=== PATIENT | female | born 1960 | race Caucasian/White ===

== ENCOUNTER 2020-05-29 12:33 | Emergency (ER) | payer OTHER, SELFPAY ==
[2020-05-29 12:52] VITALS: BMI 34.2
[2020-05-29 12:54] VITALS: BP 161/85; PULSE 72; RESP 18; TEMP 36.9; O2SAT 96
[2020-05-29 15:05] LABS: Basophils % 0.4 %; Eosinophils % 0.1 %; Hematocrit 43.8 % (37.0-47.0); Hemoglobin 14.9 g/dL (11.5-15.3); Lymphocytes # 1.5 10^3/uL (0.8-4.8); Lymphocytes % 22.6 %; Mean Corpuscular Hemoglobin 30.2 pg (28.0-34.0); Mean Corpuscular Volume 88.7 fL (81-99); Mean Platelet Volume 9.2 fL (7.4-10.4); Monocytes # 0.7 10^3/uL (0.2-0.9); Monocytes % 11.1 %; Neutrophils # 4.4 10^3/uL (1.8-7.7); Neutrophils % 65.5 %; Nucleated Red Blood Cells % 0 %; Platelet Count 175 10^3/cmm (130-400); Red Blood Count 4.94 10^6/uL (4.1-5.3); Red Cell Distribution Width 13.4 % (12.1-15.1); White Blood Count 6.7 10^3/uL (4.0-10.0)
[2020-05-29 15:37] LABS: Alanine Aminotransferase 20 U/L (0-33); Albumin Level 4.4 g/dL (3.5-5.2); Alkaline Phosphatase 61 IU/L (35-105); Anion Gap 18.3 (5-19); Aspartate Amino Transferase 21 U/L (0-32); Blood Urea Nitrogen 12 mg/dL (8-23); Calcium 9.6 mg/dL (8.5-10.5); Carbon Dioxide 24 mmol/L (22-29); Chloride 89 mmol/L (98-107); Globulin 3.9 g/dL (1.3-4.6); Glucose 153 mg/dL (65-115); Magnesium 2.2 mg/dL (1.7-2.3); Osmolality Calculated 263 mOsm/kg (285-295); Potassium 4.3 mmol/L (3.5-5.1); Sodium 127 mmol/L (136-145); Total Bilirubin 0.5 mg/dL (0.15-1.2); Total Protein 8.3 g/dL (6.6-8.7)
--- NOTE | 2020-05-29 17:29 | ED_ITS ---
HPI - General Adult General: Chief complaint: General Medical Stated complaint: poss dehydration Time Seen by Provider: 05/29/20 17:24 History of Present Illness: HPI narrative: Patient complains about dehydration because she is got shingles and not able to eat or drink much because of pain in her mouth. Onset (ago): day(s) Location: face Quality: constant Associated symptoms: Reports rash (Shingles rash right side of face times days); Deny chest pain, dyspnea, headache(s), nausea or vomiting Review of Systems Const: Denies: fever(s), chills or body aches Eyes: Denies: change in vision or blurry vision ENMT: Denies: throat pain or nasal congestion Card: Denies: chest pain or dyspnea on exertion Resp: Denies: dyspnea, productive cough or non-productive cough GI: Denies: abdominal pain, nausea or vomiting Musc: Denies: extremity pain Skin/Breast: Reports: rash (Shingles rash right side of face times days) Neuro: Denies: headache(s) Psych: Denies: anxiety or depression Trever/Lymph: Denies: easy bruising PFSH ED PFSH: Social History Smoking and tobacco status: never smoked Alcohol intake: never Physical Exam Const: COMMON NORMALS: no acute distress, average body habitus and patient oriented x3 HENMT: COMMON NORMALS: normocephalic HEAD & SCALP: normal to inspection and normocephalic FACE & SINUS: normal facial exam Eye: COMMON NORMALS: conjunctivae normal GENERAL EYE: appearance normal, both eyes and all related structures CONJUNCTIVA: Yes conjunctivae normal Neck/C-Spine: COMMON NORMALS: no JVD Chest: COMMONS NORMALS: normal inspection of the chest Resp: COMMON NORMALS: normal respiratory effort and clear to auscultation bilaterally AUSCULTATION: clear to auscultation bilaterally Cardio: COMMON NORMALS: no JVD, regular rate and regular rhythm RATE: regular rate RHYTHM: regular rhythm GI: COMMON NORMALS: Normal to inspection, nondistended, normoactive bowel sounds present Extremity: COMMON NORMALS: normal to inspection and full ROM Neuro: COMMON NORMALS: patient oriented x3 Skin: NARRATIVE SKIN EXAM: Obvious shingles type rash to the right side of the face and inside mouth Course Vital Signs: Vital signs: Vital Signs Temperature 98.4 F 05/29/20 12:54 Pulse Rate 71 05/29/20 20:14 Respiratory Rate 17 05/29/20 20:14 Blood Pressure 121/93 05/29/20 20:14 Pulse Oximetry 98 05/29/20 20:14 MDM - General Adult MDM Narrative: Medical decision making narrative: Keep appointment Dr. Dodge follow-up with your family doctor discussed UTI treatment and shingle treatment Lab Data: Labs: Lab Results 05/29/20 05/29/20 05/29/20 Range/Units 14:50 14:50 18:00 WBC 6.7 (4.0-10.0) 10^3/ uL RBC 4.94 (4.1-5.3) 10^6/u L Hgb 14.9 (11.5-15.3) g/dL Hct 43.8 (37.0-47.0) % MCV 88.7 (81-99) fL MCH 30.2 (28.0-34.0) pg MCHC 34.0 (30.0-36.0) g/dL RDW 13.4 (12.1-15.1) % Plt Count 175 (130-400) 10^3/c mm MPV 9.2 (7.4-10.4) fL Neut % (Auto) 65.5 % Lymph % (Auto) 22.6 % Gentry % (Auto) 11.1 % Eos % (Auto) 0.1 % Baso % (Auto) 0.4 % Neut # (Auto) 4.4 (1.8-7.7) 10^3/u L Lymph # (Auto) 1.5 (0.8-4.8) 10^3/u L Gentry # (Auto) 0.7 (0.2-0.9) 10^3/u L Eos # (Auto) 0.0 (0.0-0.8) 10^3/u L Baso # (Auto) 0.0 (0.0-0.1) 10^3/u L Nucleated RBC % (a uto) 0 % Nucleated RBCs # 0.0 /100WBC Sodium 127 L (136-145) mmol/L Potassium 4.3 (3.5-5.1) mmol/L Chloride 89 L (98-107) mmol/L Carbon Dioxide 24 (22-29) mmol/L Anion Gap 18.3 (5-19) BUN 12 (8-23) mg/dL Creatinine 0.6 (0.5-0.9) mg/dL GFR Calculation 102.0 (90-130) mL/min Glucose 153 H (65-115) mg/dL Calculated Osmolal ity 263 L (285-295) mOsm/k g Calcium 9.6 (8.5-10.5) mg/dL Magnesium 2.2 (1.7-2.3) mg/dL Total Bilirubin 0.5 (0.15-1.2) mg/dL AST 21 (0-32) U/L ALT 20 (0-33) U/L Alkaline Phosphata se 61 (35-105) IU/L Total Protein 8.3 (6.6-8.7) g/dL Albumin 4.4 (3.5-5.2) g/dL Globulin 3.9 (1.3-4.6) g/dL Urine Color Yellow (Yellow) Urine Appearance Hazy A (CLEAR) Urine pH 5 (5-7) Ur Specific Gravit y 1.025 (1.005-1.030) Urine Protein 1+ H (Negative) Urine Glucose (UA) Norm (Normal) Urine Ketones Negative (Negative) Urine Blood 2+ H (Negative) Urine Nitrate Negative (Negative) Urine Bilirubin 1+ H (NEGATIVE) Urine Urobilinogen Norm (Negative) mg/dL Ur Leukocyte Lyndsey ase 2+ H (Negative) Urine RBC None (0-2) /hpf Urine WBC 25-40 H (0-5) /hpf Ur Squamous Epith Cells 15-25 H (0-5) Ur Transition Epit h Cell 0-4 /hpf Urine Bacteria 2+ H (NONE) Urine Mucus 2+ Discharge Plan Discharge Patient Disposition: Home, Self-Care Clinical Impression: Bacterial UTI Shingles Qualifiers: Herpes zoster complications: with ocular involvement Herpes zoster ocular complication detail: keratitis Qualified Code(s): B02.33 - Zoster keratitis Condition: Stable Prescriptions: New Macrobid 100 mg capsule 100 mg PO BID 5 Days Qty: 10 RF: 0 hydrocodone-acetaminophen 5-325 mg tablet 1 tab PO Q6H PRN (Reason: pain) Qty: 14 RF: 0 No Action Humira 10 mg/0.2 mL syringe kit See Rx Instructions SUBCUT .COMPLEX RF: 0 lisinopril 10 mg tablet 10 mg PO DAILY RF: 0 alprazolam [Xanax] 0.5 mg tablet 0.5 mg PO DAILY RF: 0 omeprazole 20 mg capsule,delayed release(DR/EC) 20 mg PO DAILY RF: 0 methotrexate sodium 7.5 mg tablet 7.5 mg PO Q12H RF: 0 amoxicillin 500 mg capsule 1,000 mg PO BID 10 Days Qty: 40 RF: 0 Discharge Orders: Discharge Order (Routine); Ordered 05/29/20 Ordered By: Enrique Villalobos Referrals: Reid Matthews Jr, MD [Primary Care Provider] - Discharge Diet: Usual diet Discharge Activity: Increase activity as tolerated Patient Instructions: Urinary Tract Infection in Women (ED), Herpes Zoster (ED) Activity Restrictions/Additional Instructions: Follow-up with medical provider as directed. Take medications as prescribed. Return to the ER or your medical provider if condition worsens. Please read and understand discharge instructions. If any questions ask please. Discharge Date/Time: 05/29/20 20:16 Coding Level of Care Code ED Neonatal Intensive Care Unit Nurse for Angelina Fwd Exam Comprehensive
[2020-05-29] MEDS: HYDROcodone-acetaminophen 7.5-325 mg Tablet 1 TAB PO (18:18)
[2020-05-29] MEDS: ketorolac 30 mg/mL INJ IVP (18:35)
[2020-05-29 18:37] LABS: Bilirubin Urine 1+ (NEGATIVE); Blood Urine 2+ (Negative); Glucose Urine UA Norm (Normal); Ketones Urine Negative (Negative); Leukocyte Esterase Urine 2+ (Negative); Nitrate Urine Negative (Negative); Protein Urine 1+ (Negative); Specific Gravity, Urine 1.025 (1.005-1.030); Urine Appearance Hazy (CLEAR); Urine Color Yellow (Yellow); Urobilinogen Urine Norm (Negative); pH Urine 5 (5-7)
[2020-05-29 18:39] LABS: Add Urine Culture? No; Bacteria Urine 2+; Mucus Urine 2+; Squamous Epithelial Cell Urine 15-25 (0-5); Transitional Epi Cells Urine 0-4 /hpf; WBC Urine 25-40 /hpf (0-5)
[2020-05-29] MEDS: sodium chloride 0.9% 1,000 ML 999 ML IV (18:56)
[2020-05-29] MEDS: cefTRIAXone 1,000 MG in sodium chloride 0.9% (plus) 50 ML 100 MG IV (19:10)
[2020-05-29 20:14] VITALS: BP 121/93; PULSE 71; RESP 17; O2SAT 98
== END 2020-05-29 20:16 | disposition home or self-care (01) ==
PROVIDERS: Emergency Medicine; Emergency Provider Nurse Practitioner Family; PCP Family Medicine
DX: N39.0 Urinary tract infection, site not specified (principal); B02.33 Zoster keratitis
CPT/HCPCS: 12345; 36415; 80053; 81001; 83735; 85025; 96361; 96365; 96375; 99282; 99283; J0696; J1885; J7030

== ENCOUNTER → 2020-12-18 17:29 | Outpatient (BNVA) | payer OTHER, SELFPAY | PROVIDERS: PCP Family Medicine; Visit Provider Nurse Practitioner Family | DX: Z20.828 Contact with and (suspected) exposure to other viral communicable diseases (principal) | CPT/HCPCS: 87635 ==

== ENCOUNTER 2021-02-21 15:32 | Inpatient (IN) | payer OTHER, SELFPAY ==
[2021-02-21] VITALS (13 sets, daily range): BP systolic 123–178; BP diastolic 62–89; PULSE 76–126; RESP 15–26; TEMP 38.8; O2SAT 92–97; BMI 34.5
--- NOTE | 2021-02-21 17:33 | XRR_ITS ---
PROCEDURE INFORMATION: Exam: XR Chest Exam date and time: 02/21/2021 5:45 PM Age: 60 years old Clinical indication: Fever and shortness of breath; Additional info: Fever, SOB TECHNIQUE: Imaging protocol: XR of the chest Views: 1 view. Total images: 1 COMPARISON: No relevant prior studies available. FINDINGS: Lungs: Bilateral minimal discoid atelectasis. Subtle interstitial lung disease which could reflect interstitial pneumonitis. Pleural spaces: Unremarkable. No pleural effusion. No pneumothorax. Heart/Mediastinum: Unremarkable. No cardiomegaly. Bones/joints: Unremarkable. XR/XR chest 1V portable [id number] IMPRESSION: 1. Bilateral minimal discoid atelectasis. 2. Subtle interstitial lung disease which could reflect interstitial pneumonitis.
[2021-02-21 18:54] LABS: Basophils # 0.1 10^3/uL (0.0-0.1); Basophils % 0.4 %; Eosinophils # 0.5 10^3/uL (0.0-0.8); Eosinophils % 2.1 %; Hematocrit 40.6 % (37.0-47.0); Hemoglobin 13.6 g/dL (11.5-15.3); Lymphocytes # 1.9 10^3/uL (0.8-4.8); Lymphocytes % 8.4 %; Mean Corpuscular HGB Conc 33.5 g/dL (30.0-36.0); Mean Corpuscular Hemoglobin 28.6 pg (28.0-34.0); Mean Corpuscular Volume 85.3 fL (81-99); Mean Platelet Volume 10.2 fL (7.4-10.4); Monocytes # 0.8 10^3/uL (0.2-0.9); Monocytes % 3.6 %; Neutrophils # 18.91 10^3/uL (1.8-7.7); Neutrophils % 84.8 %; Nucleated Red Blood Cells % 0 %; Platelet Count 175 10^3/cmm (130-400); Red Blood Count 4.76 10^6/uL (4.1-5.3); Red Cell Distribution Width 14.5 % (12.1-15.1); White Blood Count 22.3 10^3/uL (4.0-10.0)
[2021-02-21 19:44] LABS: Lactate (Lactic Acid level) 2.1 mmol/L (0.5-2.2)
[2021-02-21 19:51] LABS: INR 1.16 (0.8-1.2)
[2021-02-21 19:55] LABS: Alanine Aminotransferase 27 U/L (0-33); Albumin Level 3.7 g/dL (3.5-5.2); Alkaline Phosphatase 61 IU/L (35-105); Anion Gap 18.9 (5-19); Aspartate Amino Transferase 22 U/L (0-32); Blood Urea Nitrogen 21 mg/dL (8-23); Calcium 9.3 mg/dL (8.5-10.5); Carbon Dioxide 24 mmol/L (22-29); Chloride 94 mmol/L (98-107); Creatine Phosphokinase 29 U/L (26-192); Globulin 3.7 g/dL (1.3-4.6); Glomerular Filtration Rate 56.4 mL/min (90-130); Glucose 131 mg/dL (65-115); Osmolality Calculated 281 mOsm/kg (285-295); Potassium 3.9 mmol/L (3.5-5.1); Sodium 133 mmol/L (136-145); Total Bilirubin 0.5 mg/dL (0.15-1.2); Total Protein 7.4 g/dL (6.6-8.7)
[2021-02-21 19:58] LABS: Add Urine Culture? Yes; Add Urine Microscopic? YES; Bacteria Urine 1+ /hpf; Bilirubin Urine Neg (Negative); Blood Urine Neg (Negative); Glucose Urine UA Norm (Normal); Ketones Urine 1+ (Negative); Leukocyte Esterase Urine 1+ (Negative); Nitrate Urine Negative (Negative); Protein Urine 1+ (Negative); RBC Urine 0-4 /hpf (0-2); Specific Gravity, Urine 1.015 (1.005-1.030); Squamous Epithelial Cell Urine 0-4 /hpf (0-5); Urine Appearance SL Hazy (CLEAR); Urine Color Yellow (Yellow); Urobilinogen Urine Norm (Negative); WBC Urine 25-40 /hpf (0-5); pH Urine 5 (5-7)
[2021-02-21 20:00] LABS: D Dimer 4.62 ug/mIFEU (0-0.59)
--- NOTE | 2021-02-21 20:06 | CTR_ITS ---
PROCEDURE INFORMATION: Exam: CT Angiography Chest With Contrast Exam date and time: 02/21/2021 8:16 PM Age: 60 years old Clinical indication: Fever and shortness of breath and other: Rash; Additional info: SOB, fever TECHNIQUE: Imaging protocol: Computed tomographic angiography of the chest with contrast. 3D rendering (Not supervised by radiologist): MIP and/or 3D reconstructed images were created by the technologist. Total images: 835 Radiation optimization: All CT scans at this facility use at least one of these dose optimization techniques: automated exposure control; mA and/or kV adjustment per patient size (includes targeted exams where dose is matched to clinical indication); or iterative reconstruction. Contrast material: VISI 320; Contrast volume: 67 ml; Contrast route: INTRAVENOUS (IV); COMPARISON: CR XR chest 1V portable [id number] 02/21/2021 5:50 PM RADIATION DOSE METRICS: Total DLP (mGy-cm): 529.6 FINDINGS: Pulmonary arteries: No visible evidence of pulmonary embolism/pulmonary arterial thrombus. Aorta: The thoracic aorta is nonaneurysmal. No visible intimal flap or dissection. Mild arterial sclerotic disease. Lungs: Bilateral subtle, unorganized patches of ground-glass interstitial lung disease with evidence of early interseptal and interlobular thickening suggesting the presence of active interstitial pneumonitis. Calcified granulomas of antecedent disease. Pleural spaces: Unremarkable. No pneumothorax. No pleural effusion. Heart: Minimal coronary artery disease. No cardiomegaly. No pericardial effusion. Mediastinal space: Small hiatal hernia. Lymph nodes: Numerous enlarged mediastinal lymph nodes. Marginally prominent hilar lymph nodes. Calcified complexes of antecedent granulomatous disease. Dominant anterior mediastinal lymph node measures 16 mm in the short axis. Dominant aortopulmonic lymph node measures 12 mm in the short axis. Gallbladder and bile ducts: Status post cholecystectomy with pneumobilia. Bones/joints: No visible evidence of active or acute osseous pathology. Soft tissues: Unremarkable. Other findings: Heavy body habitus. CT/CT angio chest PE protcl [id number] IMPRESSION: 1. No visible evidence of pulmonary embolism/pulmonary arterial thrombus. 2. Low-grade bilateral interstitial pneumonitis. 3. Numerous enlarged mediastinal lymph nodes. Radiation Dose CTDIVOL = (mGy): DLP = 529.6 (mGy-cm)
--- NOTE | 2021-02-21 20:17 | P.HP_ITS ---
Providers/Chief Complaint Chief Complaint: SOB/FEVER History of Present Illness Joyce López is a 60 year old female who has history of rheumatoid arthritis presented today with chief complaint of fever and lower extremity rash. Patient is stating that she was diagnosed with UTI a week ago for which she was started on nitrofurantoin. She started nitrofurantoin on Sunday and 4 days later on Sunday she noticed rash on her legs, this rash is nonpruritic nontender started from her legs extending up to her abdomen and lower back not involving palms and soles no fever chest pain shortness of breath nausea, vomiting or diarrhea. She has not noticed cola colored urine. Never had these kind of symptoms before. She is allergic to penicillin, she develops hives and rash, she takes methotrexate and Humira for rheumatoid arthritis. She is taking those medications for a long time. Diagnosis in the ER revealed temperature 101 with leukocytosis, met sepsis criteria source UTI patient is complaining of urinary frequency without dysuria. For high D-dimer CTA was done which ruled out PE and showed changes consistent with rheumatoid arthritis parenchymal lung changes, Of note she contracted COVID-19 pneumonia in November. In the ER she was given cefepime Review of Systems Const: Reports: chills, body aches, fatigue and malaise; Denies: fever(s) Eyes: Denies: change in vision ENMT: Denies: throat pain Card: Denies: chest pain Resp: Denies: dyspnea GI: Denies: abdominal pain : Reports: urinary frequency and urinary urgency; Denies: flank pain Musc: Reports: muscle cramps Skin/Breast: Reports: new lesions Neuro: Denies: headache(s) Psych: Denies: anxiety Endo: Denies: polyuria Trever/Lymph: Denies: easy bruising All/Imm: Denies: urticaria Medications/Allergies Home Medications Medication Instructions Recorded Confirmed Last Taken Type alprazolam 0.5 mg tablet 0.5 mg PO DAILY@2100 05/23/20 02/21/21 02/20/21 History lisinopril 10 mg tablet 10 mg PO DAILY@0830 05/23/20 02/21/21 02/21/21 History methotrexate sodium 7.5 mg tablet 7.5 mg PO Q12H 05/23/20 02/21/21 02/14/21 History omeprazole 20 mg capsule,delayed 20 mg PO DAILY@209905/23/20 02/21/21 02/20/21 History release adalimumab [Humira(CF) Pen] See Rx Instructions .ROUTE .COMPLEX 02/21/21 02/21/21 02/11/21 History folic acid 1 mg PO DAILY@0800 02/21/21 02/21/21 02/20/21 History gabapentin 200 mg PO TID@,,209902/21/21 02/21/21 02/20/21 History hydrocodone-acetaminophen 1 tab PO BEDTIME@209902/21/21 02/21/21 02/20/21 History leucovorin calcium 10 mg PO Q7D 02/21/21 02/21/21 02/15/21 History potassium 1 tab PO DAILY@79902/21/21 02/21/21 02/20/21 History Allergies Allergy/AdvReac Type Severity Reaction Status Date / Time No Known Allergies Allergy Verified 02/21/21 15:44 PFSH Acute PFSH: Medical History (Updated 02/22/21 @ 01:22 by Alex Mas MD) Gastritis Hypertension Rheumatoid arthritis Surgical History (Updated 02/22/21 @ 01:20 by Alex Mas MD) S/P cholecystectomy Family History (Updated 02/22/21 @ 01:20 by Alex Mas MD) Denies family history of Cancer Social History (Updated 02/22/21 @ 01:21 by Alex Mas MD) Smoking and tobacco status: never smoked Alcohol intake: never Substance/Drug Use: never Household members: spouse Housing: House Female Reproductive History: Spontaneous abortions: No Vitals/I&O/Wt Last Vital Signs Temp 101.9 F H 02/21/21 15:38 Pulse 126 H 02/21/21 15:38 Resp 18 02/21/21 15:38 BP 125/81 02/21/21 18:44 Pulse Ox 96 02/21/21 18:44 Weight last 48 hrs Weight 80.286 kg Physical Exam Narrative: EXAM NARRATIVE: Very pleasant middle-aged female who appears more than stated age Currently saturating well on room air sitting comfortably in her bed Very pleasant during my evaluation S1, S2 mild systolic murmur right 2nd intercostal space no signs of heart failure Abdomen soft nontender bowel sound present Lower extremity with macular rash, nontender, nonpruritic, no signs of cellulitis, nonpalpable rash, no neurovascular compromise Rashes extending up to her thighs, involving abdominal wall and back It spares her palms and soles EOMI, PERRLA no neurological deficit Pleasant mood No joint swelling No signs of shingles Saturating well on room air bilateral breath sounds without adventitious rhonchi or crackles Data : 02/21/21 18:30 02/21/21 18:30 Micro: Microbiology 02/21/21 18:30 Blood Culture - Preliminary Blood SPECIMEN COLLECTED 02/21/21 17:26 Blood Culture - Preliminary Blood SPECIMEN COLLECTED A&P Assessment and plan (1) Sepsis: Status: Acute Qualifiers: Sepsis acute organ dysfunction status: without acute organ dysfunction Sepsis type: sepsis due to unspecified organism Qualified Code(s): A41.9 - Sepsis, unspecified organism (2) Pneumonitis: Status: Acute (3) UTI (urinary tract infection): Status: Acute Qualifiers: Hematuria presence: without hematuria Urinary tract infection type: acute cystitis Qualified Code(s): N30.00 - Acute cystitis without hematuria (4) Maculopapular rash, generalized: Status: Acute Additional A&P Information Sepsis secondary to UTI Criteria met with fever, leukocytosis Obtain blood culture, urine culture started on ceftriaxone CTA rule out PE however consistent with pneumonitis which I believe is secondary to rheumatoid arthritis changes, no signs of pneumonia Maculopapular rash Eosinophils not high on CBC Considering rheumatoid arthritis and COVID-19 in November my suspicion is high for autoimmune reaction I will start her on steroids Discontinue nitrofurantoin, Avoid using MEEK because of her history of rheumatoid arthritis Would recommend outpatient follow-up with windows vmware engineer High D-dimer she saturating well on room air not tachycardic PE ruled out This seems to be secondary to inflammatory response/autoimmune flare Cardiac diet Full code DVT prophylaxis Lovenox Attestations Medical Necessity Statement*: Anticipating stay in the hospital to cross more than 2, she needs management for sepsis, UTI, maculopapular rash Time Spent in Patient Care: (>than 50% of time spent in counselling and/or direct pt care on unit) . 50mins Coding Level of Care Code Acute Asphalt Dauber for g Fwd Diagnoses Sepsis A41.9 Sepsis acute organ dysfunction status: without acute organ dysfunction Sepsis type: sepsis due to unspecified organism Pneumonitis J18.9 UTI (urinary tract infection) N30.00 Hematuria presence: without hematuria Urinary tract infection type: acute cystitis Maculopapular rash, generalized R21
--- NOTE | 2021-02-21 20:19 | PC.NURSE ---
meds delayed due to scan performed
[2021-02-21] MEDS: iodixanol 320 mg/mL 100mL Btl IV (20:23)
[2021-02-21] MEDS: cefepime 2,000 MG in sodium chloride 0.9% (plus) 50 ML 100 MG IV (20:48)
[2021-02-21] MEDS: sodium chloride 0.9% 1,000 ML 999 ML IV (20:48)
--- NOTE | 2021-02-21 23:21 | W.ED.SOB ---
HPI - SOB/Dyspnea General: Chief Complaint: Shortness of Breath/Dyspnea Stated Complaint: SOB/FEVER Time Seen by Provider: 02/21/21 16:51 Source: patient and family () Mode of arrival: ambulatory Limitations: no limitations History of Present Illness: HPI Narrative: Patient was in her usual state of health until about 3 days ago when she noticed rash on both legs that has gradually spread around her body. She has subsequently noticed her heart rate was high, is feeling short of breath and has been having chills. She denies any fever at home. She denies any nausea or vomiting. Denies any diarrhea. She denies taking any new medications or been exposed to anything new. She does have a history of rheumatoid arthritis. She had COVID-19 2 months ago. MD elicited complaint: shortness of breath Onset (ago): day(s) (3) Context: recent illness Timing: constant Severity: moderate Exacerbating factors: nothing Relieving factors: nothing Associated symptoms: Reports cough, extremity pain, myalgias and rash; Deny abdominal pain, chest congestion, chest pain, diaphoresis, dizziness, fever(s), hemoptysis, lightheadedness, nausea, orthopnea, palpitations, paresthesias, polydipsia, polyuria, sense of impending doom, syncope or vomiting Treatment prior to arrival: none Related Data: Home oxygen amount: none Review of Systems General: Reports: 10 or more systems reviewed and unremarkable except in HPI and below Const: Reports: chills and body aches; Denies: fever(s) or diaphoresis Card: Denies: chest pain, palpitations, lightheadedness, syncope or orthopnea Resp: Denies: hemoptysis or chest congestion GI: Denies: abdominal pain, nausea or vomiting Musc: Reports: extremity pain Neuro: Denies: dizziness Endo: Denies: polyuria or polydipsia PFS ED PFSH: Social History Smoking and tobacco status: never smoked Alcohol intake: never Female Reproductive History: Spontaneous abortions: No Physical Exam Const: COMMON NORMALS: no acute distress, average body habitus, patient oriented x3, no limitations, healthy appearing, alert and well nourished HENMT: COMMON NORMALS: normocephalic, atraumatic and moist oral mucous membranes HEAD & SCALP: normocephalic and atraumatic Eye: COMMON NORMALS: Equal, round and reactive pupils present, EOMs intact bilaterally, conjunctivae normal and no scleral icterus CONJUNCTIVA: Yes conjunctivae normal PUPIL: Yes Equal, round and reactive pupils present Neck/C-Spine: COMMON NORMALS: full ROM, supple, no meningeal signs, no JVD and No carotid bruits Resp: COMMON NORMALS: normal respiratory effort, No retractions, No use of accessory muscles and percussion normal AUSCULTATION: rales PERCUSSION: percussion normal Cardio: COMMON NORMALS: no JVD, regular rhythm, S1 normal heart sound present, S2 normal heart sound present, No gallops present (Cardio), No clicks present (Cardio), No murmurs present (Cardio), No rub (Cardio) and Peripheral pulses 2+ throughout RATE: tachycardic RHYTHM: regular rhythm HEART SOUNDS: S1 normal heart sound present and S2 normal heart sound present PERIPHERAL PULSES: Peripheral pulses 2+ throughout GI: COMMON NORMALS: Normal to inspection, nondistended, normoactive bowel sounds present, Soft to palpation, non-tender, No hepatosplenomegaly present, no masses and no bruits PALPATION: Yes Soft to palpation and Yes No hepatosplenomegaly present Extremity: COMMON NORMALS: normal to inspection, full ROM, capillary refill normal, no calf tenderness and no pedal edema Neuro: COMMON NORMALS: patient oriented x3 SENSORIUM/ORIENTATION: Yes alert MENINGEAL SIGNS: Yes no meningeal signs Skin: COMMON NORMALS: no rashes or lesions noted, no wounds, turgor normal, no jaundice and no mottling GENERAL SKIN EXAM: no rashes or lesions noted, turgor normal and purpura (Purpuric rashes to both legs and upper extremities.) RASHES: rashes noted Course Consultations: Consultation #1: Discussed the patient with Dr. Mas, hospitlaist and he kindly accepted the patient to his service. Vital Signs: Vital signs: Vital Signs Temperature 101.9 F H 02/21/21 15:38 Pulse Rate 84 02/21/21 22:17 Respiratory Rate 18 02/21/21 22:17 Blood Pressure 152/62 02/21/21 22:17 Pulse Oximetry 97 02/21/21 22:17 MDM - SOB/Dyspnea MDM Narrative: Medical decision making narrative: 60-year-old female who presents to the emergency department with a purpuric rash, fever in the emergency department but not at home, shortness of breath. Evaluation in the emergency room show significant leukocytosis, tachycardia, fever, UTI, and pneumonitis on CT. She met sepsis criteria. She was given a fluid bolus and IV antibiotics in the emergency department. She is admitted to the hospital for further evaluation and management. Medical Records: Attestation: I reviewed the patient's medical records. Lab Data: Attestation: I reviewed the patient's lab results. Labs: Lab Results 02/21/21 02/21/21 02/21/21 Range/Units 18:30 18:30 18:30 WBC 22.3 H (4.0-10.0) 10^3/ uL RBC 4.76 (4.1-5.3) 10^6/u L Hgb 13.6 (11.5-15.3) g/dL Hct 40.6 (37.0-47.0) % MCV 85.3 (81-99) fL MCH 28.6 (28.0-34.0) pg MCHC 33.5 (30.0-36.0) g/dL RDW 14.5 (12.1-15.1) % Plt Count 175 (130-400) 10^3/c mm MPV 10.2 (7.4-10.4) fL Neut % (Auto) 84.8 % Lymph % (Auto) 8.4 % Guadalupe % (Auto) 3.6 % Eos % (Auto) 2.1 % Baso % (Auto) 0.4 % Neut # (Auto) 18.91 H (1.8-7.7) 10^3/u L Lymph # (Auto) 1.9 (0.8-4.8) 10^3/u L Gu[place]upe # (Auto) 0.8 (0.2-0.9) 10^3/u L Eos # (Auto) 0.5 (0.0-0.8) 10^3/u L Baso # (Auto) 0.1 (0.0-0.1) 10^3/u L Nucleated RBC % (a uto) 0 % Nucleated RBCs # 0.0 /100WBC PT 15.20 H (12.1-14.9) SECO NDS INR 1.16 (0.8-1.2) D-Dimer 4.62 H (0-0.59) ug/mIFE U Sodium 133 L (136-145) mmol/L Potassium 3.9 (3.5-5.1) mmol/L Chloride 94 L (98-107) mmol/L Carbon Dioxide 24 (22-29) mmol/L Anion Gap 18.9 (5-19) BUN 21 (8-23) mg/dL Creatinine 1.0 H (0.5-0.9) mg/dL GFR Calculation 56.4 L (90-130) mL/min Glucose 131 H (65-115) mg/dL Calculated Osmolal ity 281 L (285-295) mOsm/k g Lactate (0.5-2.2) mmol/L Calcium 9.3 (8.5-10.5) mg/dL Total Bilirubin 0.5 (0.15-1.2) mg/dL AST 22 (0-32) U/L ALT 27 (0-33) U/L Alkaline Phosphata se 61 (35-105) IU/L Creatine Kinase 29 (26-192) U/L Total Protein 7.4 (6.6-8.7) g/dL Albumin 3.7 (3.5-5.2) g/dL Globulin 3.7 (1.3-4.6) g/dL Urine Color (Yellow) Urine Appearance (CLEAR) Urine pH (5-7) Ur Specific Gravit y (1.005-1.030) Urine Protein (Negative) Urine Glucose (UA) (Normal) Urine Ketones (Negative) Urine Blood (Negative) Urine Nitrate (Negative) Urine Bilirubin (Negative) Urine Urobilinogen (Negative) mg/dL Ur Leukocyte Lyndsey ase (Negative) Urine RBC (0-2) /hpf Urine WBC (0-5) /hpf Ur Squamous Epith Cells (0-5) /hpf Amorphous Sediment Urine Bacteria (NONE) /hpf 02/21/21 02/21/21 Range/Units 18:30 19:25 WBC (4.0-10.0) 10^3/ uL RBC (4.1-5.3) 10^6/u L Hgb (11.5-15.3) g/dL Hct (37.0-47.0) % MCV (81-99) fL MCH (28.0-34.0) pg MCHC (30.0-36.0) g/dL RDW (12.1-15.1) % Plt Count (130-400) 10^3/c mm MPV (7.4-10.4) fL Neut % (Auto) % Lymph % (Auto) % Guadalupe % (Auto) % Eos % (Auto) % Baso % (Auto) % Neut # (Auto) (1.8-7.7) 10^3/u L Lymph # (Auto) (0.8-4.8) 10^3/u L Gu[place]upe # (Auto) (0.2-0.9) 10^3/u L Eos # (Auto) (0.0-0.8) 10^3/u L Baso # (Auto) (0.0-0.1) 10^3/u L Nucleated RBC % (a uto) % Nucleated RBCs # /100WBC PT (12.1-14.9) SECO NDS INR (0.8-1.2) D-Dimer (0-0.59) ug/mIFE U Sodium (136-145) mmol/L Potassium (3.5-5.1) mmol/L Chloride (98-107) mmol/L Carbon Dioxide (22-29) mmol/L Anion Gap (5-19) BUN (8-23) mg/dL Creatinine (0.5-0.9) mg/dL GFR Calculation (90-130) mL/min Glucose (65-115) mg/dL Calculated Osmolal ity (285-295) mOsm/k g Lactate 2.1 (0.5-2.2) mmol/L Calcium (8.5-10.5) mg/dL Total Bilirubin (0.15-1.2) mg/dL AST (0-32) U/L ALT (0-33) U/L Alkaline Phosphata se (35-105) IU/L Creatine Kinase (26-192) U/L Total Protein (6.6-8.7) g/dL Albumin (3.5-5.2) g/dL Globulin (1.3-4.6) g/dL Urine Color Yellow (Yellow) Urine Appearance Sl hazy (CLEAR) Urine pH 5 (5-7) Ur Specific Gravit y 1.015 (1.005-1.030) Urine Protein 1+ H (Negative) Urine Glucose (UA) Norm (Normal) Urine Ketones 1+ H (Negative) Urine Blood Neg (Negative) Urine Nitrate Negative (Negative) Urine Bilirubin Neg (Negative) Urine Urobilinogen Norm (Negative) mg/dL Ur Leukocyte Lyndsey ase 1+ H (Negative) Urine RBC 0-4 H (0-2) /hpf Urine WBC 25-40 H (0-5) /hpf Ur Squamous Epith Cells 0-4 H (0-5) /hpf Amorphous Sediment Not Reportable Urine Bacteria 1+ H (NONE) /hpf Imaging Data^: CXR: Attestation: I personally reviewed and interpreted this imaging study as follows: Radiologist's impression: [address] [address] XRay Report Signed Patient: Joyce López CUnit #: [id number] : 1960Acct#:[id number] Age/Sex: 60 / FADM Date: 02/21/21 Loc: [facility]/Bed: [facility] Attending Dr: Alex Mas MD Ordering Provider/Ordering MD: Nilsa Segundo MD, [facility] Date of Service: 02/21/21 Procedure(s): XR chest 1V portable [id number] Accession Number(s): [id number] Report Number: [id number] PROCEDURE INFORMATION: Exam: XR Chest Exam date and time: 02/21/2021 5:45 PM Age: 60 years old Clinical indication: Fever and shortness of breath; Additional info: Fever, SOB TECHNIQUE: Imaging protocol: XR of the chest Views: 1 view. Total images: 1 COMPARISON: No relevant prior studies available. FINDINGS: Lungs: Bilateral minimal discoid atelectasis. Subtle interstitial lung disease which could reflect interstitial pneumonitis. Pleural spaces: Unremarkable. No pleural effusion. No pneumothorax. Heart/Mediastinum: Unremarkable. No cardiomegaly. Bones/joints: Unremarkable. XR/XR chest 1V portable [id number] IMPRESSION: 1. Bilateral minimal discoid atelectasis. 2. Subtle interstitial lung disease which could reflect interstitial pneumonitis. Dictated By:Pradeep Carter Signed By:Ryan Carter Date/Time:02/21/212330 DD/ 29 CTA Chest: Attestation: I personally reviewed and interpreted this imaging study as follows: Radiologist's impression: [address] [place] [address] CT Scan Report Signed Patient: Joyce López CUnit #: [id number] : 1960Acct#:[id number] Age/Sex: 60 / FADM Date: 02/21/21 Loc: [facility]/Bed: Attending Dr: Ordering Provider/Ordering MD: Nilsa Segundo MD, [facility] Date of Service: 02/21/21 Procedure(s): CT angio chest PE protcl [id number] Accession Number(s): [id number] Report Number: [id number] PROCEDURE INFORMATION: Exam: CT Angiography Chest With Contrast Exam date and time: 02/21/2021 8:16 PM Age: 60 years old Clinical indication: Fever and shortness of breath and other: Rash; Additional info: SOB, fever TECHNIQUE: Imaging protocol: Computed tomographic angiography of the chest with contrast. 3D rendering (Not supervised by radiologist): MIP and/or 3D reconstructed images were created by the technologist. Total images: 835 Radiation optimization: All CT scans at this facility use at least one of these dose optimization techniques: automated exposure control; mA and/or kV adjustment per patient size (includes targeted exams where dose is matched to clinical indication); or iterative reconstruction. Contrast material: VISI 320; Contrast volume: 67 ml; Contrast route: INTRAVENOUS (IV); COMPARISON: CR XR chest 1V portable [id number] 02/21/2021 5:50 PM RADIATION DOSE METRICS: Total DLP (mGy-cm): 529.6 FINDINGS: Pulmonary arteries: No visible evidence of pulmonary embolism/pulmonary arterial thrombus. Aorta: The thoracic aorta is nonaneurysmal. No visible intimal flap or dissection. Mild arterial sclerotic disease. Lungs: Bilateral subtle, unorganized patches of ground-glass interstitial lung disease with evidence of early interseptal and interlobular thickening suggesting the presence of active interstitial pneumonitis. Calcified granulomas of antecedent disease. Pleural spaces: Unremarkable. No pneumothorax. No pleural effusion. Heart: Minimal coronary artery disease. No cardiomegaly. No pericardial effusion. Mediastinal space: Small hiatal hernia. Lymph nodes: Numerous enlarged mediastinal lymph nodes. Marginally prominent hilar lymph nodes. Calcified complexes of antecedent granulomatous disease. Dominant anterior mediastinal lymph node measures 16 mm in the short axis. Dominant aortopulmonic lymph node measures 12 mm in the short axis. Gallbladder and bile ducts: Status post cholecystectomy with pneumobilia. Bones/joints: No visible evidence of active or acute osseous pathology. Soft tissues: Unremarkable. Other findings: Heavy body habitus. CT/CT angio chest PE protcl [id number] IMPRESSION: 1. No visible evidence of pulmonary embolism/pulmonary arterial thrombus. 2. Low-grade bilateral interstitial pneumonitis. 3. Numerous enlarged mediastinal lymph nodes. Radiation Dose CTDIVOL = (mGy): DLP = 529.6 (mGy-cm) Dictated By:Pradeep Carter Signed By:Pradeep CarterSignumm Date/Time:02/21/212111 DD/ 10 Critical Care Time Critical Care Time: Critical Care Time: Yes Total Critical Care Time: 60 Attestation: This case had a high probability of a clinically significant, sudden, or life threatening deterioration of this patient's condition which required my full and direct attention, intervention and personal management. Discharge Plan Discharge Patient Disposition: Admitted As Inpatient Admit Provider: Alex Mas Clinical Impression: Pneumonitis Sepsis Qualifiers: Sepsis type: sepsis due to unspecified organism Sepsis acute organ dysfunction status: without acute organ dysfunction Qualified Code(s): A41.9 - Sepsis, unspecified organism UTI (urinary tract infection) Qualifiers: Urinary tract infection type: acute cystitis Hematuria presence: without hematuria Qualified Code(s): N30.00 - Acute cystitis without hematuria Condition: Stable Coding Level of Care Code ED Flight Director for Angelina Monsalve
[2021-02-22] VITALS (26 sets, daily range): BP systolic 126–159; BP diastolic 63–89; PULSE 69–95; RESP 12–30; TEMP 36.4–37.2; O2SAT 91–97
[2021-02-22] MEDS: cefTRIAXone 1,000 MG in sodium chloride 0.9% (plus) 50 ML 100 MG IV (00:59)
[2021-02-22] MEDS: ALPRAZolam 0.5 mg Tablet PO ×2 (02:01→21:30)
[2021-02-22] MEDS: enoxaparin 40 mg/0.4 mL Syringe SUBCUT (02:01)
[2021-02-22] MEDS: gabapentin 100 mg Capsule 200 MG PO ×4 (02:01→21:30)
[2021-02-22 05:35] LABS: Basophils # 0.1 10^3/uL (0.0-0.1); Basophils % 0.3 %; Eosinophils # 0.5 10^3/uL (0.0-0.8); Hematocrit 38.9 % (37.0-47.0); Hemoglobin 12.8 g/dL (11.5-15.3); Lymphocytes # 3.3 10^3/uL (0.8-4.8); Lymphocytes % 18.6 %; Mean Corpuscular HGB Conc 32.9 g/dL (30.0-36.0); Mean Corpuscular Hemoglobin 28.8 pg (28.0-34.0); Mean Corpuscular Volume 87.6 fL (81-99); Mean Platelet Volume 10.6 fL (7.4-10.4); Monocytes # 0.7 10^3/uL (0.2-0.9); Monocytes % 3.8 %; Neutrophils # 12.91 10^3/uL (1.8-7.7); Neutrophils % 73.6 %; Nucleated Red Blood Cells % 0 %; Platelet Count 156 10^3/cmm (130-400); Red Blood Count 4.44 10^6/uL (4.1-5.3); Red Cell Distribution Width 14.6 % (12.1-15.1); White Blood Count 17.5 10^3/uL (4.0-10.0)
[2021-02-22 05:48] LABS: Alanine Aminotransferase 24 U/L (0-33); Albumin Level 3.4 g/dL (3.5-5.2); Alkaline Phosphatase 55 IU/L (35-105); Anion Gap 16.7 (5-19); Aspartate Amino Transferase 15 U/L (0-32); Blood Urea Nitrogen 18 mg/dL (8-23); Calcium 8.6 mg/dL (8.5-10.5); Carbon Dioxide 22 mmol/L (22-29); Chloride 99 mmol/L (98-107); Globulin 3.5 g/dL (1.3-4.6); Glomerular Filtration Rate 72.9 mL/min (90-130); Glucose 182 mg/dL (65-115); Osmolality Calculated 285 mOsm/kg (285-295); Potassium 3.7 mmol/L (3.5-5.1); Sodium 134 mmol/L (136-145); Total Bilirubin 0.4 mg/dL (0.15-1.2); Total Protein 6.9 g/dL (6.6-8.7)
[2021-02-22 06:07] LABS: Slide Review Slide Review Perform
[2021-02-22] MEDS: lisinopril 10 mg Tablet PO (09:09)
--- NOTE | 2021-02-22 10:31 | PC.NURSE ---
pt wants bath at bed time
--- NOTE | 2021-02-22 11:57 | PC.CHAP ---
Pastoral Care Encounter/Spiritual Assessment Type of Contact [] Declined stamping mill tender visit [] Patient/Family/Request visit [] Outpatient visit [] Follow-up visit [] Physician referral [] Code/Alert [x] Routine visit [] Staff referral [] Actively dying [] Patient sleeping [] Family support [] [] Out of room [] Palliative care [] [] Receiving care in room [] Pre-surgical visit [] Trauma [] Long length of stay [] ICU visit [] Other: Relational/Emotional Strength [] Patient feels connected with others/family/visitors/staff [] Distress [] Loneliness/isolation [] Abandonment Spirituality of Patient [] Person of Karoline [] Attends Advent of their Karoline [] Believes in Prayer [] Reads Bible or Restorationism materials [] There are Spiritual issues to be addressed Communication Analyst Interventions [x] Prayer [x] Active listening [x] Non-anxious presence [x] Spiritual/emotional support [] Crisis/trauma care [] Spiritual counseling [] Bereavement support [] Provided bereavement packet [] Provided Bible/devotional materials [] Provided toy/stuffed animal, coloring book to patient or family member [] Provided Communion [] Anointing/[place] [] Salvation [x] Completed spiritual assessment [] Other: Impact on Illness or Injury [] Angry [] Fearful [] Anxious [] Often cries [] Exhaustion [] Unable to work [] Unable to attend christian [] Unable to walk/stand [] Unable to read [] Unable to drive [] Unable to eat/drink [] Unable to sleep [] Unable to be with family [] Patient intubated [] Other: Summary patient feeling better.. no ox. and need red rash addressed... [id number]..... no itching.. no apparent swelling.. just cover all area Time spent with patient 15 min
--- NOTE | 2021-02-22 22:20 | PM.PN ---
Subjective Subjective: Interval history: Overall she states is doing all right. Denies any new symptoms. Denies chest pain or pressure or trouble breathing. Denies abdominal pain or discomfort. No flank pain. No trouble urinating. She does not see any extension of the rash on her legs. He does not appear any worse, although states that her did not think it was any better when he saw her today. Has no mucosal lesions. Vitals/I&O/Wt Last Vital Signs Temp 98 F 02/22/21 19:48 Pulse 78 02/22/21 19:48 Resp 15 02/22/21 19:48 BP 133/76 02/22/21 19:48 Pulse Ox 97 02/22/21 19:48 02/22/21 02/22/21 02/22/21 06:59 14:59 22:59 Intake Total 290 / 1340 600 / 600 360 / 960 Balance 290 / 1340 600 / 600 360 / 960 Weight last 48 hrs Weight 80.286 kg Physical Exam Const: COMMON NORMALS: no acute distress and patient oriented x3 HENMT: COMMON NORMALS: oropharynx normal Neck/C-Spine: COMMON NORMALS: no JVD Resp: COMMON NORMALS: normal respiratory effort and clear to auscultation bilaterally AUSCULTATION: clear to auscultation bilaterally Cardio: COMMON NORMALS: no JVD, regular rhythm, S1 normal heart sound present, S2 normal heart sound present and No murmurs present (Cardio) RHYTHM: regular rhythm HEART SOUNDS: S1 normal heart sound present and S2 normal heart sound present GI: COMMON NORMALS: Normal to inspection, nondistended, normoactive bowel sounds present, Soft to palpation and non-tender PALPATION: Yes Soft to palpation Extremity: COMMON NORMALS: no joint enlargement and no pedal edema Neuro: COMMON NORMALS: patient oriented x3 and moves all extremities Skin: OTHER: Morbilliform maculopapular lesions with almost petechial-like component of bilateral lower extremities, extending from ankles to thighs, with denser areas with areas of overlap. No significant swelling. No lesions on hands. Mucosa. I do not appreciate any on her back, abdomen. Data : 02/22/21 04:11 02/22/21 04:11 Micro: Microbiology 02/21/21 18:30 Blood Culture - Preliminary Blood NEGATIVE TO DATE 02/21/21 17:26 Blood Culture - Preliminary Blood NEGATIVE TO DATE A&P Assessment and plan (1) Sepsis: Improving. Leukocytosis improving. Fever appears resolved. Continue IV antibiotics at this time. Follow-up cultures. Status: Acute Qualifiers: Sepsis acute organ dysfunction status: without acute organ dysfunction Sepsis type: sepsis due to unspecified organism Qualified Code(s): A41.9 - Sepsis, unspecified organism (2) Pneumonitis: Breathing appears to stabilized. Doing well on room air. Continue antibiotics. Status: Acute (3) UTI (urinary tract infection): Antibiotics, nitrofurantoin was discontinued. Follow-up urine culture. Status: Acute Qualifiers: Hematuria presence: without hematuria Urinary tract infection type: acute cystitis Qualified Code(s): N30.00 - Acute cystitis without hematuria (4) Maculopapular rash, generalized: This appears to have at least stabilized, although so far not much improvement, but no further extension. Maculopapular/almost petechial component to the rash with some confluent lesions on bilateral lower extremities. She reports some lesions on the back, but I do not see any currently. None of the abdomen either. None on her hands. No mucosal lesions. Concern for drug reaction with nitrofurantoin. Does not appear like cellulitis. Was started on steroid. Continue for now. Refer to commercial loan assistant. For now additionally monitor in the hospital. Status: Acute Additional A&P Information Cardiac diet Full code DVT prophylaxis Lovenox Attestations Medical Necessity Statement*: Continue admission for assessment management of improving sepsis, UTI, pneumonitis, maculopapular lower extremity rash. Coding Level of Care Code Acute Poultry Barn Manager for [facility] Diagnoses Sepsis A41.9 Sepsis acute organ dysfunction status: without acute organ dysfunction Sepsis type: sepsis due to unspecified organism Pneumonitis J18.9 UTI (urinary tract infection) N30.00 Hematuria presence: without hematuria Urinary tract infection type: acute cystitis Maculopapular rash, generalized R21
[2021-02-23] VITALS (8 sets, daily range): BP systolic 147–166; BP diastolic 76–93; PULSE 60–79; RESP 17–23; TEMP 36.6–36.8; O2SAT 94–97
[2021-02-23] MEDS: cefTRIAXone 1,000 MG in sodium chloride 0.9% (plus) 50 ML 100 MG IV (01:40)
[2021-02-23] MEDS: enoxaparin 40 mg/0.4 mL Syringe SUBCUT (01:50)
[2021-02-23 05:48] LABS: Basophils # 0.1 10^3/uL (0.0-0.1); Basophils % 0.4 %; Eosinophils # 0.2 10^3/uL (0.0-0.8); Hematocrit 41.1 % (37.0-47.0); Hemoglobin 13.3 g/dL (11.5-15.3); Lymphocytes # 3.9 10^3/uL (0.8-4.8); Lymphocytes % 21.5 %; Mean Corpuscular HGB Conc 32.4 g/dL (30.0-36.0); Mean Corpuscular Hemoglobin 28.6 pg (28.0-34.0); Mean Corpuscular Volume 88.4 fL (81-99); Monocytes # 0.7 10^3/uL (0.2-0.9); Monocytes % 3.6 %; Neutrophils # 13.12 10^3/uL (1.8-7.7); Neutrophils % 72.8 %; Nucleated Red Blood Cells % 0 %; Platelet Count 215 10^3/cmm (130-400); Red Blood Count 4.65 10^6/uL (4.1-5.3); Red Cell Distribution Width 14.6 % (12.1-15.1)
[2021-02-23 06:04] LABS: Alanine Aminotransferase 29 U/L (0-33); Albumin Level 3.4 g/dL (3.5-5.2); Alkaline Phosphatase 59 IU/L (35-105); Aspartate Amino Transferase 15 U/L (0-32); Blood Urea Nitrogen 14 mg/dL (8-23); Calcium 9.1 mg/dL (8.5-10.5); Carbon Dioxide 24 mmol/L (22-29); Chloride 107 mmol/L (98-107); Globulin 3.5 g/dL (1.3-4.6); Glomerular Filtration Rate 101.6 mL/min (90-130); Glucose 139 mg/dL (65-115); Osmolality Calculated 293 mOsm/kg (285-295); Sodium 140 mmol/L (136-145); Total Bilirubin 0.3 mg/dL (0.15-1.2); Total Protein 6.9 g/dL (6.6-8.7)
--- NOTE | 2021-02-23 07:39 | PC.NURSE ---
BEDSIDE REPORT received from Tank MILLIGAN no out fernandez events or out of limits vital signs patient resting with eyes closed
[2021-02-23] MEDS: lisinopril 10 mg Tablet PO (08:57)
[2021-02-23] MEDS: gabapentin 100 mg Capsule 200 MG PO ×3 (08:57→21:22)
[2021-02-23] MEDS: ALPRAZolam 0.5 mg Tablet PO (21:22)
[2021-02-23] MEDS: HYDROcodone-acetaminophen 5-325 mg Tablet 1 TAB PO (21:22)
--- NOTE | 2021-02-23 21:40 | P.PN_ITS ---
Subjective Subjective: Interval history: Denies any new symptoms today. She pretty much feels close to her usual self. Is not sure whether her rash is improving. She has a number of pictures of her rash at the beginning from several days ago, and we reviewed them together, and comparing to how her rash looks like currently, she agrees that it looks like there is significant improvement in the skin edema/wheals/papularity. Macules are still there, with the same distribution or possibly little bit less, but without any progression. She denies any additional symptoms. No headache, vision changes, no nausea vomiting or diarrhea. No shortness of breath. Denies chest pain or pressure. Denies abdominal discomfort. Denies any skin symptoms. Discussed with her regarding mild rising leukocytosis today. Vitals/I&O/Wt Last Vital Signs Temp 98 F 02/23/21 20:00 Pulse 62 02/23/21 20:00 Resp 23 H 02/23/21 20:00 BP 166/91 02/23/21 20:00 Pulse Ox 96 02/23/21 20:00 02/23/21 02/23/21 02/23/21 06:59 14:59 22:59 Intake Total 170 / 1250 720 / 720 360 / 1080 Balance 170 / 1250 720 / 720 360 / 1080 Physical Exam Const: COMMON NORMALS: no acute distress and patient oriented x3 HENMT: COMMON NORMALS: oropharynx normal Neck/C-Spine: COMMON NORMALS: no JVD Resp: COMMON NORMALS: normal respiratory effort and clear to auscultation bilaterally AUSCULTATION: clear to auscultation bilaterally Cardio: COMMON NORMALS: no JVD, regular rhythm, S1 normal heart sound present, S2 normal heart sound present and No murmurs present (Cardio) RHYTHM: regular rhythm HEART SOUNDS: S1 normal heart sound present and S2 normal heart sound present GI: COMMON NORMALS: Normal to inspection, nondistended, normoactive bowel sounds present, Soft to palpation and non-tender PALPATION: Yes Soft to palpation Extremity: COMMON NORMALS: no joint enlargement and no pedal edema Neuro: COMMON NORMALS: patient oriented x3 and moves all extremities Skin: OTHER: Morbilliform maculopapular lesions with almost petechial-like component of bilateral lower extremities, extending from ankles to thighs, with denser areas with areas of overlap. No significant swelling. No lesions on hands. Mucosa. I do not appreciate any on her back, abdomen. Data : 02/23/21 05:36 02/23/21 05:36 Micro: Microbiology 02/21/21 19:25 Urine Culture - Final Urine,Clean Catch 02/21/21 18:30 Blood Culture - Preliminary Blood NEGATIVE TO DATE 02/21/21 17:26 Blood Culture - Preliminary Blood NEGATIVE TO DATE A&P Assessment and plan (1) Sepsis: Leukocytosis worse today, but symptomatically she overall is doing very well. Discussed with her some rise in leukocytosis today, at the same time discussed noncontributory urine culture. No growth on blood culture. Difficult to say that she did not have urinary tract infection as she may have partially treated infection with nitrofurantoin. She verbalized understanding and agreement to continue with antibiotic therapy to complete course for complicated UTI/sepsis. We will request urine culture from her PCPs office. Fever resolved. Continue IV antibiotics at this time. Status: Acute Qualifiers: Sepsis acute organ dysfunction status: without acute organ dysfunction Sepsis type: sepsis due to unspecified organism Qualified Code(s): A41.9 - Sepsis, unspecified organism (2) Pneumonitis: Breathing tuttle she is doing very well. Saturations in high 90s on room air. Denies any breathing complaints. Denies any cough, chest discomfort. Continue antibiotics. Status: Acute (3) UTI (urinary tract infection): Antibiotics, nitrofurantoin was discontinued. As above. Status: Acute Qualifiers: Hematuria presence: without hematuria Urinary tract infection type: acute cystitis Qualified Code(s): N30.00 - Acute cystitis without hematuria (4) Maculopapular rash, generalized: Regarding surface area, rash has not receded, however, there is quite significant improvement in the cuticular edema/wheals on review of pictures taken by her from several days ago from the start of the rash. She does agree that there is improvement. Discussed with her further possibilities going forward, including possibility of obtaining skin biopsy, or continued expectant management given she is improving and obtaining biopsy in case there is worsening, she prefers at this time to proceed with latter option at least for now. She agrees to follow-up with rheumatology and dermatology. In case there is no further progression of, and continued improvement in symptoms, she would like to discharge home tomorrow. Drug reaction with nitrofurantoin. Does not appear like cellulitis. Discussed with her possible alternative etiologies given history of autoimmune condition. Will de-escalate steroid to p.o. dosing. Status: Acute Additional A&P Information Cardiac diet Full code DVT prophylaxis Lovenox Attestations Medical Necessity Statement*: Continue admission for assessment of management of improving sepsis, urinary tract infection, lower extremity extensive rash secondary to suspected drug reaction, in the setting of history of autoimmune condition, de-escalation of steroid, follow-up of urine cultures from PCPs office. Discharge planning. Coding Level of Care Code Acute Biomedical Engineering Technician for [facility] Fwd Diagnoses Sepsis A41.9 Sepsis acute organ dysfunction status: without acute organ dysfunction Sepsis type: sepsis due to unspecified organism Pneumonitis J18.9 UTI (urinary tract infection) N30.00 Hematuria presence: without hematuria Urinary tract infection type: acute cystitis Maculopapular rash, generalized R21
[2021-02-24] MEDS: enoxaparin 40 mg/0.4 mL Syringe SUBCUT (00:35)
[2021-02-24] MEDS: cefTRIAXone 1,000 MG in sodium chloride 0.9% (plus) 50 ML 100 MG IV (00:35)
[2021-02-24 00:44] VITALS: BP 138/78; PULSE 63; RESP 20; TEMP 36.6; O2SAT 97
[2021-02-24 04:00] VITALS: BP 123/63; PULSE 53; RESP 14; TEMP 36.6; O2SAT 95
[2021-02-24 05:01] LABS: Basophils # 0.1 10^3/uL (0.0-0.1); Basophils % 0.4 %; Eosinophils # 0.3 10^3/uL (0.0-0.8); Eosinophils % 1.6 %; Hematocrit 38.4 % (37.0-47.0); Hemoglobin 12.6 g/dL (11.5-15.3); Lymphocytes # 4.3 10^3/uL (0.8-4.8); Lymphocytes % 25.1 %; Mean Corpuscular HGB Conc 32.8 g/dL (30.0-36.0); Mean Corpuscular Hemoglobin 28.8 pg (28.0-34.0); Mean Corpuscular Volume 87.9 fL (81-99); Mean Platelet Volume 10.5 fL (7.4-10.4); Monocytes # 0.9 10^3/uL (0.2-0.9); Monocytes % 5.1 %; Neutrophils # 11.23 10^3/uL (1.8-7.7); Neutrophils % 66.2 %; Nucleated Red Blood Cells % 0 %; Platelet Count 235 10^3/cmm (130-400); Red Blood Count 4.37 10^6/uL (4.1-5.3); Red Cell Distribution Width 14.6 % (12.1-15.1)
[2021-02-24 05:23] LABS: Albumin Level 3.3 g/dL (3.5-5.2); Alkaline Phosphatase 59 IU/L (35-105); Blood Urea Nitrogen 15 mg/dL (8-23); Calcium 8.8 mg/dL (8.5-10.5); Carbon Dioxide 28 mmol/L (22-29); Chloride 103 mmol/L (98-107); Globulin 3.3 g/dL (1.3-4.6); Glomerular Filtration Rate 101.6 mL/min (90-130); Glucose 119 mg/dL (65-115); Osmolality Calculated 290 mOsm/kg (285-295); Sodium 139 mmol/L (136-145); Total Bilirubin 0.3 mg/dL (0.15-1.2); Total Protein 6.6 g/dL (6.6-8.7)
[2021-02-24 05:26] LABS: Slide Review Slide Review Perform
[2021-02-24 05:43] LABS: Alanine Aminotransferase 28 U/L (0-33); Anion Gap 12.2 (5-19); Aspartate Amino Transferase 20 U/L (0-32); Potassium 4.2 mmol/L (3.5-5.1)
[2021-02-24 05:50] VITALS: PULSE 49
--- NOTE | 2021-02-24 07:15 | PC.NURSE ---
Patient taken to nuclear medicine for stress test.
[2021-02-24 07:26] VITALS: BP 148/75; PULSE 61; RESP 22; TEMP 36.7; O2SAT 97
--- NOTE | 2021-02-24 08:13 | PC.NURSE ---
pt wants bath at to night
[2021-02-24] MEDS: lisinopril 10 mg Tablet PO (08:31)
[2021-02-24] MEDS: predniSONE 20 mg Tablet PO (08:31)
[2021-02-24] MEDS: gabapentin 100 mg Capsule 200 MG PO (08:32)
[2021-02-24 11:10] VITALS: BP 151/83; PULSE 62; RESP 22; TEMP 36.7; O2SAT 98
--- NOTE | 2021-02-24 11:11 | P.DS_ITS ---
Discharge Providers Date of Admission: 02/21/21 20:54 Date of Discharge: February 24, 2021 Attending Provider at Admission: Alex Mas MD Attending Provider at Discharge: Andrew Garrett Diagnoses at Discharge Discharge Diagnosis (1) Sepsis: Status: Acute Qualifiers: Sepsis acute organ dysfunction status: without acute organ dysfunction Sepsis type: sepsis due to unspecified organism Qualified Code(s): A41.9 - Sepsis, unspecified organism (2) Pneumonitis: Status: Acute (3) UTI (urinary tract infection): Status: Acute Qualifiers: Hematuria presence: without hematuria Urinary tract infection type: acute cystitis Qualified Code(s): N30.00 - Acute cystitis without hematuria (4) Maculopapular rash, generalized: Status: Acute Reason for Visit Reason for Visit: SOB/FEVER Hospital Course Hospital Course Pleasant 60-year-old lady with rheumatoid arthritis, hypertension, COVID-19 in November was recently diagnosed and started on treatment with nitrofurantoin for urinary tract infection and her PCP. Was admitted on 02/21 with fever as well as extensive bilateral lower extremity rash which started on Sunday, 4 days later after starting nitrofurantoin. Maculopapular rash noted in both lower extremities, initially with dermal edema when the rash was progressing. Subtle interstitial lung disease was noted on chest x-ray. She additionally was assessed by CTA chest which did not show PE, showed low-grade bilateral interstitial pneumonitis, numerous enlarged mediastinal lymph nodes. She was t reated with ceftriaxone in the hospital for sepsis, UTI. Was started on Solu- Medrol and later transitioned to prednisone for rash with history of underlying autoimmune condition. Rash did not progress any further, and is currently starting to resolve, with resultant dermal edema, and resolution/improvement in maculopapular lesions fainting starting at the thighs. This is thought most likely drug reaction to nitrofurantoin. Although would maintain caution as she is on a number of additional other medications which can cause rash as well. She is asked to follow-up with her quarantine inspector with regards to the rash, pneumonitis/interstitial changes in the setting of rheumatoid arthritis. She is also referred to dermatology. After she recovers from acute illness, consider pulmonary function testing. On discharge confirming with her PCPs office urine culture grew pansensitive E. coli. She will be asked to complete antibiotic course with cefdinir. Brief steroid taper. Physical Exam Const: COMMON NORMALS: no acute distress and patient oriented x3 HENMT: COMMON NORMALS: oropharynx normal Neck/C-Spine: COMMON NORMALS: no JVD Resp: COMMON NORMALS: normal respiratory effort and clear to auscultation bilaterally AUSCULTATION: clear to auscultation bilaterally Cardio: COMMON NORMALS: no JVD, regular rhythm, S1 normal heart sound present, S2 normal heart sound present and No murmurs present (Cardio) RHYTHM: regular rhythm HEART SOUNDS: S1 normal heart sound present and S2 normal heart sound present GI: COMMON NORMALS: Normal to inspection, nondistended, normoactive bowel sounds present, Soft to palpation and non-tender PALPATION: Yes Soft to palpation Extremity: COMMON NORMALS: no joint enlargement and no pedal edema Neuro: COMMON NORMALS: patient oriented x3 and moves all extremities Skin: COMMON NORMALS: no rashes or lesions noted GENERAL SKIN EXAM: no rashes or lesions noted OTHER: Morbilliform maculopapular lesions with almost petechial-like component of bilateral lower extremities, extending from ankles to thighs, with denser areas with areas of overlap. Resolution of dermal edema. Fading, most pronounced on thighs, but showing improvement elsewhere as well. Discharge Data Data Completed and Pending: Completed Studies During Hospitalization Category Date Time Status CT angio chest PE protcl 17110 Stat Cat Scan 02/21/21 20:06 Completed XR chest 1V anaya ble 60490 Urgent Exams 02/21/21 17:33 Completed Pending at discharge Category Date Time Status Blood Culture Sta t Lab 02/21/21 18:30 Results Complete Blood Co unt w/Auto AM LABS Lab 02/25/21 04:00 Ordered Comprehensive Met abolic Panel AM LA BS Lab 02/25/21 04:00 Ordered Labs from last 24 hours 02/24/21 02/24/21 04:18 04:18 WBC 17.0 H RBC 4.37 Hgb 12.6 Hct 38.4 MCV 87.9 MCH 28.8 MCHC 32.8 RDW 14.6 Plt Count 235 MPV 10.5 H Neut % (Auto) 66.2 Lymph % (Auto) 25.1 [place] % (Auto) 5.1 Eos % (Auto) 1.6 Baso % (Auto) 0.4 Neut # (Auto) 11.23 H Lymph # (Auto) 4.3 [place] # (Auto) 0.9 Eos # (Auto) 0.3 Baso # (Auto) 0.1 Nucleated RBC % (a uto) 0 Nucleated RBCs # 0.0 Sodium 139 Potassium 4.2 Chloride 103 Carbon Dioxide 28 Anion Gap 12.2 BUN 15 Creatinine 0.6 GFR Calculation 101.6 Glucose 119 H Calculated Osmolal ity 290 Calcium 8.8 Total Bilirubin 0.3 AST 20 ALT 28 Alkaline Phosphata se 59 Total Protein 6.6 Albumin 3.3 L Globulin 3.3 Vitals: Last Vital Signs Temp 98.0 F 02/24/21 07:26 Pulse 61 02/24/21 07:26 Resp 22 H 02/24/21 07:26 BP 148/75 02/24/21 07:26 Pulse Ox 97 02/24/21 07:26 Discharge Plan Discharge Patient Disposition: Home Condition: Stable Prescriptions: New prednisone 10 mg tablet 20 mg PO DAILY Qty: 4 RF: 0 cefdinir 300 mg capsule 300 mg PO BID 2 Days Qty: 4 RF: 0 Continued lisinopril 10 mg tablet 10 mg PO DAILY@0830 RF: 0 alprazolam [Xanax] 0.5 mg tablet 0.5 mg PO DAILY@2100 RF: 0 omeprazole 20 mg capsule,delayed release(DR/EC) 20 mg PO DAILY@2100 RF: 0 methotrexate sodium 7.5 mg tablet 7.5 mg PO Q12H RF: 0 hydrocodone-acetaminophen 5-325 mg tablet 1 tab PO BEDTIME@2100 RF: 0 leucovorin calcium 10 mg tablet 10 mg PO Q7D RF: 0 folic acid 1 mg tablet 1 mg PO DAILY@0800 RF: 0 gabapentin 100 mg capsule 200 mg PO TID@08,12,2099 RF: 0 Humira(CF) Pen 40 mg/0.4 mL pen injector kit See Rx Instructions .ROUTE .COMPLEX RF: 0 potassium 1 tab PO DAILY@0800 RF: 0 Discharge Orders: Discharge Order (Routine); Ordered 02/24/21 Ordered By: Andrew Garrett Referrals: Darci Eastman MD [Hospitalist] - 03/03/21 Vinod Isaacs MD [Referring] - 1 week Yesenia Goodwin DO [Physician] - 4-7 days (rash) Discharge Diet: Cardiac Discharge Activity: Increase activity as tolerated Patient Instructions: Prednisone (By mouth), Cefdinir (By mouth) Activity Restrictions/Additional Instructions: Please follow-up with rheumatology, dermatology with regards to the rash. Please avoid nitrofurantoin in the future. Please complete antibiotic course for urinary tract infection (E. coli) Please follow-up with your primary care provider. If you experience worsening rash, any high fever, shortness of breath, or the other concerning symptoms please seek medical attention without delay. Discharge Attestations Time Spent in Discharge Care*: greater than 30 min Quality Metrics Clinical Quality Measures During this hospital stay, did patient experience: None Coding Level of Care Code Acute Chg FW DC note Diagnoses Sepsis A41.9 Sepsis acute organ dysfunction status: without acute organ dysfunction Sepsis type: sepsis due to unspecified organism Pneumonitis J18.9 UTI (urinary tract infection) N30.00 Hematuria presence: without hematuria Urinary tract infection type: acute cystitis Maculopapular rash, generalized R21
[2021-02-24 11:24] VITALS: BP 151/83; PULSE 62; RESP 22; TEMP 36.7; O2SAT 98
== END 2021-02-24 13:10 | disposition home or self-care (01) | DRG 871 ==
LOC: ER 20:57 → CSU 22:11
PROVIDERS: Admitting Provider Internal Medicine; Emergency Provider Family Medicine; Visit Provider Internal Medicine
DX: A41.9 Sepsis, unspecified organism (principal); J18.9 Pneumonia, unspecified organism; N30.00 Acute cystitis without hematuria; M05.10 Rheumatoid lung disease with rheumatoid arthritis of unspecified site; Z86.16 Personal history of COVID-19; Z79.52 Long term (current) use of systemic steroids; I10 Essential (primary) hypertension; L27.0 Generalized skin eruption due to drugs and medicaments taken internally; T37.8X5A Adverse effect of other specified systemic anti-infectives and antiparasitics, initial encounter; R59.0 Localized enlarged lymph nodes; B96.20 Unspecified Escherichia coli [E. coli] as the cause of diseases classified elsewhere
CPT/HCPCS: 36415; 71045; 71275; 80053; 81001; 82550; 83605; 85025; 85378; 85610; 87040; 87086; 96365; 96367; 96372; 96375; 99285; J0692; J0696; J1650; J2920; J7030; J7512; Q9967

== ENCOUNTER 2021-03-23 20:31 | Emergency (ER) | payer OTHER, SELFPAY ==
[2021-03-23 20:50] VITALS: BP 167/87; PULSE 89; RESP 18; TEMP 36.8; O2SAT 96; BMI 34.2
--- NOTE | 2021-03-23 21:07 | CTR_ITS ---
PROCEDURE INFORMATION: Exam: CT Abdomen And Pelvis With Contrast Exam date and time: 03/23/2021 9:09 PM Age: 60 years old Clinical indication: Prior surgery; Surgery type: Gb; Patient HX: Bloody stools x 1 day; Additional info: Gi bleed abd pain TECHNIQUE: Imaging protocol: Computed tomography of the abdomen and pelvis with contrast. Radiation optimization: All CT scans at this facility use at least one of these dose optimization techniques: automated exposure control; mA and/or kV adjustment per patient size (includes targeted exams where dose is matched to clinical indication); or iterative reconstruction. Contrast material: OMNI 300; Contrast volume: 95 ml; Contrast route: INTRAVENOUS (IV); COMPARISON: No relevant prior studies available. RADIATION DOSE METRICS: Total DLP (mGy-cm): 1521.47 FINDINGS: Lungs: Compared with 02/21/2021, the ground-glass opacities in the visualized portions of the lung bases have improved. Mediastinal space: There is a small hiatal hernia. Liver: There is no focal abnormality within the liver. Gallbladder and bile ducts: There has been a cholecystectomy. There is some minimal air within the bile ducts in the left lobe of the liver, less than on 02/21/2021. Pancreas: The pancreas is normal. Spleen: The spleen is normal. Adrenal glands: The adrenal glands are normal. Kidneys and ureters: The kidneys are normal. There is no evidence of hydronephrosis. There is no evidence of renal or ureteral calcifications. Stomach and bowel: There is abnormal thickening of the colon involving most severely the descending colon from the splenic flexure to the proximal sigmoid colon but also to a lesser extent mid sigmoid colon and the right colon. These findings represent nonspecific colitis which could be of infectious or ischemic etiology. Differential considerations include pseudomembranous colitis. Appendix: A normal appendix is identified. A normal appendix is identified. Intraperitoneal space: There is no evidence of focal peritoneal fluid collections to suggest abscess formation. Vasculature: Unremarkable. No abdominal aortic aneurysm. Lymph nodes: There is no evidence of lymphadenopathy. Urinary bladder: There is diffuse thickening of the urinary bladder wall. Please correlate for signs and symptoms of urinary tract infection. Reproductive: Unremarkable as visualized. Bones/joints: Unremarkable. No acute fracture. Soft tissues: Unremarkable. CT/CT abdomen pelvis w con* [id number] IMPRESSION: 1. Colitis involving predominantly the left colon. 2. Abnormal thickening of the urinary bladder wall. Please correlate for signs or symptoms of urinary tract infection. 3. There has been improvement in pulmonary disease compared with 02/21/2021 Radiation Dose CTDIVOL = (mGy): DLP = 1521.47 (mGy-cm)
[2021-03-23] MEDS: iohexol 300 mg/mL 100 mL Btl IV (21:21)
--- NOTE | 2021-03-23 21:35 | ED_ITS ---
HPI - GI Bleed General: Chief complaint: GI Bleed Stated complaint: poss gi bleed Time Seen by Provider: 03/23/21 20:57 Source: patient Mode of arrival: ambulatory Limitations: no limitations History of Present Illness: HPI Narrative: 60-year-old female states she has had lower GI bleeding since this morning. States she had 10-15 stools were mucousy red blood. She denies really any stool just having the blood. She denies any lightheadedness. Denies any dark or black stools. She has had some lower abdominal cramping. Denies vomiting. She denies any worsening improving factors. No history of GI bleeds in the past. She is not on any blood thinners. Associated symptoms: Reports abdominal pain; Denies chills, easy bruising, fever(s), headache(s) or rash Review of Systems Const: Denies: fever(s), chills, body aches or change in appetite Eyes: Denies: blurry vision or eye discomfort ENMT: Denies: throat pain or dental pain Card: Denies: chest pain Resp: Denies: dyspnea GI: Reports: abdominal pain and hematochezia : Denies: dysuria Musc: Denies: neck pain or back pain Skin/Breast: Denies: rash Neuro: Denies: headache(s) Psych: Denies: depression Trever/Lymph: Denies: easy bruising All/Imm: Denies: urticaria PFSH ED PFSH: Medical History Gastritis Hypertension Rheumatoid arthritis Surgical History S/P cholecystectomy Family History Denies family history of Cancer Social History Smoking and tobacco status: never smoked Alcohol intake: never Household members: spouse Housing: House Female Reproductive History: Spontaneous abortions: No Physical Exam Const: COMMON NORMALS: no acute distress, patient oriented x3 and healthy appearing HENMT: COMMON NORMALS: normocephalic and atraumatic HEAD & SCALP: normocephalic and atraumatic Eye: COMMON NORMALS: Equal, round and reactive pupils present and EOMs intact bilaterally PUPIL: Yes Equal, round and reactive pupils present Neck/C-Spine: COMMON NORMALS: full ROM and supple Chest: COMMONS NORMALS: normal inspection of the chest and normal palpation of entire chest wall Resp: COMMON NORMALS: normal respiratory effort, No retractions, No use of accessory muscles and clear to auscultation bilaterally AUSCULTATION: clear to auscultation bilaterally Cardio: COMMON NORMALS: regular rate, regular rhythm and No murmurs present (Cardio) RATE: regular rate RHYTHM: regular rhythm GI: COMMON NORMALS: Normal to inspection, nondistended, normoactive bowel sounds present, Soft to palpation, non-tender and no masses PALPATION: Yes Soft to palpation OTHER: Rectal exam shows very small amount of mucousy-like blood no hemorrhoid or fissure noted Extremity: COMMON NORMALS: normal to inspection and full ROM Neuro: COMMON NORMALS: patient oriented x3, moves all extremities and no focal motor deficits Psych: COMMON NORMALS: mental status grossly normal, Normal thought process present and cooperative THOUGHT PROCESS: Normal thought process present Skin: COMMON NORMALS: no rashes or lesions noted and no wounds GENERAL SKIN EXAM: no rashes or lesions noted Course Vital Signs: Vital signs: Vital Signs Temperature 98.2 F 03/23/21 20:50 Pulse Rate 89 03/23/21 20:50 Respiratory Rate 18 03/23/21 20:50 Blood Pressure 167/87 03/23/21 20:50 Pulse Oximetry 96 03/23/21 20:50 MDM - GI Bleed MDM Narrative: Medical decision making narrative: Patient presents here with slight blood in her stool that was mucousy. CT showed colitis which would be consistent with her symptoms. Patient feels improved here and her blood counts normal. We will place her on Augmentin. She does have a PCP appointment tomorrow and is to follow-up then and return if worsening. Lab Data: Labs: Lab Results 03/23/21 03/23/21 03/23/21 Range/Units 21:50 21:50 21:50 WBC 10.9 H (4.0-10.0) 10^3/ uL RBC 4.48 (4.1-5.3) 10^6/u L Hgb 12.7 (11.5-15.3) g/dL Hct 39.4 (37.0-47.0) % MCV 87.9 (81-99) fL MCH 28.3 (28.0-34.0) pg MCHC 32.2 (30.0-36.0) g/dL RDW 14.6 (12.1-15.1) % Plt Count 224 (130-400) 10^3/c mm MPV 9.4 (7.4-10.4) fL Neut % (Auto) 72.8 % Lymph % (Auto) 18.9 % Donley % (Auto) 6.1 % Eos % (Auto) 1.6 % Baso % (Auto) 0.3 % Neut # (Auto) 7.95 H (1.8-7.7) 10^3/u L Lymph # (Auto) 2.1 (0.8-4.8) 10^3/u L Donley # (Auto) 0.7 (0.2-0.9) 10^3/u L Eos # (Auto) 0.2 (0.0-0.8) 10^3/u L Baso # (Auto) 0.0 (0.0-0.1) 10^3/u L Nucleated RBC % (a uto) 0 % Nucleated RBCs # 0.0 /100WBC PT 13.00 (12.1-14.9) SECO NDS INR 0.96 (0.8-1.2) Sodium 135 L (136-145) mmol/L Potassium 4.0 (3.5-5.1) mmol/L Chloride 101 (98-107) mmol/L Carbon Dioxide 22 (22-29) mmol/L Anion Gap 16.0 (5-19) BUN 9 (8-23) mg/dL Creatinine 0.6 (0.5-0.9) mg/dL GFR Calculation 101.6 (90-130) mL/min Glucose 112 (65-115) mg/dL Calculated Osmolal ity 279 L (285-295) mOsm/k g Calcium 8.8 (8.5-10.5) mg/dL Total Bilirubin 0.4 (0.15-1.2) mg/dL AST 26 (0-32) U/L ALT 19 (0-33) U/L Alkaline Phosphata se 65 (35-105) IU/L Total Protein 7.1 (6.6-8.7) g/dL Albumin 3.8 (3.5-5.2) g/dL Globulin 3.3 (1.3-4.6) g/dL Imaging Data^: CT Abd/Pel: Attestation: I personally reviewed and interpreted this imaging study as follows: [facility]'s [facility]: [facility] [address] [place] [address] CT Scan Report Signed Patient: Joyce López Unit #: [id number] : 1960 Age/Sex: 60 / F ADM Date: 03/23/21 Loc: ER Room/Bed: Attending Dr: Ordering Provider/Ordering MD: Joan Chan MD Date of Service: 03/23/21 Procedure(s): CT abdomen pelvis w con* [id number] Accession Number(s): [id number] Report Number: [id number] PROCEDURE INFORMATION: Exam: CT Abdomen And Pelvis With Contrast Exam date and time: 03/23/2021 9:09 PM Age: 60 years old Clinical indication: Prior surgery; Surgery type: Gb; Patient HX: Bloody stools x 1 day; Additional info: Gi bleed abd pain TECHNIQUE: Imaging protocol: Computed tomography of the abdomen and pelvis with contrast. Radiation optimization: All CT scans at this facility use at least one of these dose optimization techniques: automated exposure control; mA and/or kV adjustment per patient size (includes targeted exams where dose is matched to clinical indication); or iterative reconstruction. Contrast material: OMNI 300; Contrast volume: 95 ml; Contrast route: INTRAVENOUS (IV); COMPARISON: No relevant prior studies available. RADIATION DOSE METRICS: Total DLP (mGy-cm): 1521.47 FINDINGS: Lungs: Compared with 02/21/2021, the ground-glass opacities in the visualized portions of the lung bases have improved. Mediastinal space: There is a small hiatal hernia. Liver: There is no focal abnormality within the liver. Gallbladder and bile ducts: There has been a cholecystectomy. There is some minimal air within the bile ducts in the left lobe of the liver, less than on 02/21/2021. Pancreas: The pancreas is normal. Spleen: The spleen is normal. Adrenal glands: The adrenal glands are normal. Kidneys and ureters: The kidneys are normal. There is no evidence of hydronephrosis. There is no evidence of renal or ureteral calcifications. Stomach and bowel: There is abnormal thickening of the colon involving most severely the descending colon from the splenic flexure to the proximal sigmoid colon but also to a lesser extent mid sigmoid colon and the right colon. These findings represent nonspecific colitis which could be of infectious or ischemic etiology. Differential considerations include pseudomembranous colitis. Appendix: A normal appendix is identified. A normal appendix is identified. Intraperitoneal space: There is no evidence of focal peritoneal fluid collections to suggest abscess formation. Vasculature: Unremarkable. No abdominal aortic aneurysm. Lymph nodes: There is no evidence of lymphadenopathy. Urinary bladder: There is diffuse thickening of the urinary bladder wall. Please correlate for signs and symptoms of urinary tract infection. Reproductive: Unremarkable as visualized. Bones/joints: Unremarkable. No acute fracture. Soft tissues: Unremarkable. CT/CT abdomen pelvis w con* [id number] IMPRESSION: 1. Colitis involving predominantly the left colon. 2. Abnormal thickening of the urinary bladder wall. Please correlate for signs or symptoms of urinary tract infection. 3. There has been improvement in pulmonary disease compared with 02/21/2021 Radiation Dose CTDIVOL = (mGy): DLP = 1521.47 (mGy-cm) Discharge Plan Discharge Patient Disposition: Home Clinical Impression: Colitis Condition: Stable Prescriptions: New Augmentin 875-125 mg tablet 1 tab PO BID Qty: 14 RF: 0 No Action lisinopril 10 mg tablet 10 mg PO DAILY@0830 RF: 0 alprazolam [Xanax] 0.5 mg tablet 0.5 mg PO DAILY@2100 RF: 0 omeprazole 20 mg capsule,delayed release(DR/EC) 20 mg PO DAILY@0800 RF: 0 methotrexate sodium 2.5 mg tablet 20 mg PO Q7D RF: 0 cetirizine 10 mg Tablet 10 mg PO DAILY@0800 RF: 0 hydrocodone-acetaminophen 5-325 mg tablet 1 tab PO BEDTIME@2100 RF: 0 leucovorin calcium 10 mg tablet 10 mg PO Q7D RF: 0 folic acid 1 mg tablet 1 mg PO DAILY@0800 RF: 0 gabapentin 100 mg capsule 200 mg PO TID@08,12,2099 RF: 0 Humira(CF) Pen 40 mg/0.4 mL pen injector kit See Rx Instructions .ROUTE .COMPLEX RF: 0 potassium 1 tab PO DAILY@0800 RF: 0 Discharge Orders: Discharge ED (Routine); Ordered 03/23/21 Ordered By: Joan Chan Discharge Diet: Advance as tolerated Discharge Activity: Resume usual activity Patient Instructions: Infectious Colitis (ED) Coding Level of Care Code ED Circular Ripsaw Operator for Angelina Fwd Exam Comprehensive
[2021-03-23 22:14] LABS: Basophils % 0.3 %; Eosinophils # 0.2 10^3/uL (0.0-0.8); Eosinophils % 1.6 %; Hematocrit 39.4 % (37.0-47.0); Hemoglobin 12.7 g/dL (11.5-15.3); Lymphocytes # 2.1 10^3/uL (0.8-4.8); Lymphocytes % 18.9 %; Mean Corpuscular HGB Conc 32.2 g/dL (30.0-36.0); Mean Corpuscular Hemoglobin 28.3 pg (28.0-34.0); Mean Corpuscular Volume 87.9 fL (81-99); Mean Platelet Volume 9.4 fL (7.4-10.4); Monocytes # 0.7 10^3/uL (0.2-0.9); Monocytes % 6.1 %; Neutrophils # 7.95 10^3/uL (1.8-7.7); Neutrophils % 72.8 %; Nucleated Red Blood Cells % 0 %; Platelet Count 224 10^3/cmm (130-400); Red Blood Count 4.48 10^6/uL (4.1-5.3); Red Cell Distribution Width 14.6 % (12.1-15.1); White Blood Count 10.9 10^3/uL (4.0-10.0)
[2021-03-23 22:21] LABS: INR 0.96 (0.8-1.2)
[2021-03-23 22:27] LABS: Alanine Aminotransferase 19 U/L (0-33); Albumin Level 3.8 g/dL (3.5-5.2); Alkaline Phosphatase 65 IU/L (35-105); Blood Urea Nitrogen 9 mg/dL (8-23); Calcium 8.8 mg/dL (8.5-10.5); Carbon Dioxide 22 mmol/L (22-29); Chloride 101 mmol/L (98-107); Globulin 3.3 g/dL (1.3-4.6); Glomerular Filtration Rate 101.6 mL/min (90-130); Glucose 112 mg/dL (65-115); Osmolality Calculated 279 mOsm/kg (285-295); Sodium 135 mmol/L (136-145); Total Bilirubin 0.4 mg/dL (0.15-1.2); Total Protein 7.1 g/dL (6.6-8.7)
[2021-03-23 22:29] LABS: Aspartate Amino Transferase 26 U/L (0-32)
== END 2021-03-23 22:59 | disposition home or self-care (01) ==
PROVIDERS: Emergency Provider Emergency Medicine
DX: K52.9 Noninfective gastroenteritis and colitis, unspecified (principal); I10 Essential (primary) hypertension
CPT/HCPCS: 74177; 80053; 85025; 85610; 99283; Q9967

== ENCOUNTER 2021-04-21 12:56 | Outpatient (CLI) | payer OTHER, SELFPAY ==
--- NOTE | 2021-04-21 13:02 | MM_ITS ---
WS: [id number] BILATERAL SCREENING DIGITAL MAMMOGRAM WITH CAD HISTORY: SCREENING COMPARISON: 06/21/2018 and 10/01/2008 Bilateral CC and MLO views submitted. Computer aided detection analyzed. Breast composition: There are scattered areas of fibroglandular density. No suspicious masses, microc alcifications or architectural distortion. Benign scattered calcifications in each breast. Vascular c alcifications are also present. MM/[place] [id number] IMPRESSION: BI-RADS: 2-Benign FOLLOW UP: 1 Year Follow-up
== END 2021-04-21 12:57 | disposition home or self-care (01) ==
LOC: RADSHAW 13:00
PROVIDERS: PCP Family Medicine; Visit Provider Family Medicine
DX: Z12.31 Encounter for screening mammogram for malignant neoplasm of breast (principal)
CPT/HCPCS: 77067

== ENCOUNTER 2022-04-26 09:00 | Outpatient (CLI) | payer OTHER, SELFPAY ==
--- NOTE | 2022-04-26 09:14 | MM_ITS ---
WS: [id number] Bilateral screening 3D tomosynthesis digital mammogram, 04/26/2022 Clinical Data: SCREENING Comparison: 04/21/2021, 06/21/2018, 10/01/2008. Findings: The breast parenchymal pattern shows hyperglandular tissue No spiculated masses or clustered calcific ations are seen. There are no secondary signs of carcinoma. MM/[place] [id number] Impression: 1. Negative bilateral mammogram unchanged. 2. Recommend annual screening mammograms. BIRADS: 1-Negative FOLLOW UP: 1 Year Follow-up The CAD machine design checker was used.
== END 2022-04-26 09:01 | disposition home or self-care (01) ==
LOC: RAD 09:01
PROVIDERS: PCP Family Medicine; Visit Provider Family Medicine
DX: Z12.31 Encounter for screening mammogram for malignant neoplasm of breast (principal)
CPT/HCPCS: 77063; 77067

== ENCOUNTER → 2023-10-20 14:43 | Outpatient (BNVA) | payer OTHER, SELFPAY | PROVIDERS: PCP Family Medicine; Visit Provider Emergency Medicine | DX: R39.9 Unspecified symptoms and signs involving the genitourinary system (principal) | CPT/HCPCS: 81000; 87086 ==

== ENCOUNTER 2023-11-06 09:16 | Outpatient (CLI) | payer OTHER, SELFPAY ==
--- NOTE | 2023-11-06 09:27 | MM_ITS ---
WS: [email or web address] VIEWS: MLO and CC views both breasts. 3D digital tomosynthesis is also included in this exam. Comparison made with prior exam of 10/01/2008, 06/21/2018, 04/21/2021, 04/26/2022.. Findings: There was no sign of mass, architectural distortion or suspicious calcification in either breast. Sta ble appearing nodular densities in both breasts. There are scattered areas of fibroglandular density Impression: MM/[place] [id number] BI-RADS: 2-Benign finding FOLLOW-UP: 1 Year Follow-up This mammogram was also analyzed by the Computer Aided Detection System R2 Imag e Making Department Preparer.
== END 2023-11-06 09:17 | disposition home or self-care (01) ==
LOC: RAD 09:16
PROVIDERS: PCP Family Medicine; Visit Provider Family Medicine
DX: Z12.31 Encounter for screening mammogram for malignant neoplasm of breast (principal)
CPT/HCPCS: 77063; 77067

== ENCOUNTER 2023-11-13 14:00 | Outpatient (CLI) | payer OTHER, SELFPAY ==
--- NOTE | 2023-11-13 14:10 | USR_ITS ---
PROCEDURE INFORMATION: Exam: US Nonobstetric Pelvis; Complete Exam date and time: 11/13/2023 2:31 PM Age: 62 years old Clinical indication: Pelvic pain; Additional info: Pelvic perineal pain TECHNIQUE: Imaging protocol: Transabdominal pelvic nonobstetric ultrasound. Complete exam. Real time ultrasound with image documentation. COMPARISON: CT abdomen pelvis w con* [id number] 03/23/2021 9:35 PM FINDINGS: Uterus: Uterus measures 6.9 x 2.5 x 3.3 cm. Endometrial thickness is 0.5 cm. Right ovary measures 1.3 x 0.8 x 1.2 cm and the left measures 1.2 x 0.8 x 1.2 cm. No free fluid in the pelvis. Right ovary/adnexa: See Uterus finding. Left ovary/adnexa: See uterus finding Intraperitoneal space: See Uterus finding. Urinary bladder: Normal. US/US pelv w/transvag [id number] IMPRESSION: No significant pathology.
== END 2023-11-13 14:01 | disposition home or self-care (01) ==
LOC: RAD 14:00
PROVIDERS: PCP Family Medicine; Visit Provider Family Medicine
DX: R10.2 Pelvic and perineal pain (principal)
CPT/HCPCS: 76830; 76856

== ENCOUNTER 2025-03-16 12:13 | Outpatient (CLI) | payer MEDICARE, OTHER, SELFPAY ==
--- NOTE | 2025-03-16 12:22 | XR_ITS ---
WS: [id number] SCREENING DEXA SCAN [employer] CLINICAL INFORMATION: ASYMPTOMATIC MENOPAUSAL STATE FINDINGS: The L1-L4 bone mineral density measures 1.033 g/cm2. This corresponds to a T score score of -1.2 and Z score of -0.3. Left femoral neck bone mineral density measures 0.875 g/cm2. This corresponds to a T score of -1.1 and Z score of -0.3. Right femoral neck bone mineral density measures 0.900 g/cm2. This corresponds to a T score -0.9of and Z score of -0.1. Mean femoral neck bone mineral density measures 0.887 g/cm2. This corresponds to a T score of -1.0 and Z score of -0.2. XR/XR DEXA axial skeleton* [id number] IMPRESSION: Osteopenia lumbar spine. Osteopenia femoral necks. Patient's FRAX calculated 10 year probability for major osteoporotic fracture i s 14.5% and osteoporotic hip fracture is 2.9%.
--- NOTE | 2025-03-16 12:26 | MM_ITS ---
WS: [id number] BILATERAL 3D TOMOSYNTHESIS DIGITAL SCREENING MAMMOGRAPHY WITH CAD CLINICAL INFORMATION: SCREENING HISTORY: Screening mammogram. No current complaints. COMPARISON: 2022 TECHNIQUE: Bilateral CC and MLO views. FINDINGS: Scattered fibroglandular densities bilaterally. Vascular calcification. Incidental punctate calcifications. Small irregular asymmetry inferior LEFT breast is more prominent compared to previous measuring approximately 9 mm. This is in the lower outer LEFT breast. Recommend further evaluation with LEFT breast diagnostic mammography and ultrasound if persistent. Unremarkable RIGHT breast MM/MM scr tomosynthesis [id number] IMPRESSION: DENSITY: There are scattered areas of fibroglandular density. BI-RADS: 0 - Incomplete: Need additional imaging evaluation. FOLLOW UP: Need Additional Imaging Recommend LEFT breast diagnostic mammography and ultrasound if persistent
== END 2025-03-16 12:14 | disposition home or self-care (01) ==
PROVIDERS: PCP Family Medicine; Visit Provider Family Medicine
DX: Z12.31 Encounter for screening mammogram for malignant neoplasm of breast (principal); Z78.0 Asymptomatic menopausal state; M85.89 Other specified disorders of bone density and structure, multiple sites; R92.323 Mammographic fibroglandular density, bilateral breasts; R92.1 Mammographic calcification found on diagnostic imaging of breast; N63.23 Unspecified lump in the left breast, lower outer quadrant
CPT/HCPCS: 77063; 77067; 77080

== ENCOUNTER 2025-03-30 12:20 | Outpatient (CLI) | payer MEDICARE, OTHER, SELFPAY ==
--- NOTE | 2025-03-30 12:28 | MM_ITS ---
WS: [id number] LEFT 3D TOMOSYNTHESIS DIGITAL MAMMOGRAPHY WITH CAD CLINICAL INFORMATION: ABNORMAL MAMMO HISTORY: Additional views COMPARISON: 03/16/2025 TECHNIQUE: 2 views of the left breast were obtained. FINDINGS: Scattered fibroglandular densities of the left breast. 9 mm asymmetric density lower outer LEFT breast is persistent. Ultrasound described below. ULTRASOUND BREAST LEFT TECHNIQUE: Ultrasound left breast focused area of concern. CLINICAL INFORMATION: ABNORMAL MAMMO FINDINGS: Ultrasound lower outer quadrant LEFT breast. At the 6 o'clock position retroareolar there is a single incidental dilated duct. No intraductal lesions. No visualized cystic or solid lesions to target for biopsy. Recommend return to annual screening mammography. MM/MM diag LT tomosynthesis [id number] IMPRESSION: DENSITY: There are scattered areas of fibroglandular density. BI-RADS: 2 - Benign. FOLLOW UP: 1 Year Follow-up Recommend return to annual screening mammography.
== END 2025-03-30 12:21 | disposition home or self-care (01) ==
PROVIDERS: PCP Family Medicine; Visit Provider Family Medicine
DX: R92.8 Other abnormal and inconclusive findings on diagnostic imaging of breast (principal); R92.322 Mammographic fibroglandular density, left breast; N64.89 Other specified disorders of breast
CPT/HCPCS: 76642; 77061; G0279